=== PATIENT | male | born 2000 | race Two or more races ===

== ENCOUNTER 2021-04-23 06:28 | Emergency (ER) | payer MEDICAID ==
[~2021-04-23] VITALS: Ht 160 cm; Wt 73.0 kg
[2021-04-23 07:38] VITALS: BP 133/77
== END 2021-04-23 08:46 | disposition home or self-care (01) ==
LOC: ER 08:44
DX: S30.812A Abrasion of penis, initial encounter (principal); X58.XXXA Exposure to other specified factors, initial encounter; Y93.89 Activity, other specified; Y92.018 Other place in single-family (private) house as the place of occurrence of the external cause
CPT/HCPCS: 99281